=== PATIENT | male | born 1995 | race Caucasian/White ===

== ENCOUNTER → 2022-06-11 08:51 | Outpatient (BNVA) | payer OTHER, SELFPAY | PROVIDERS: Family Provider General Practice; PCP Urology; Visit Provider Registered Nurse | DX: I10 Essential (primary) hypertension (principal); Z82.49 Family history of ischemic heart disease and other diseases of the circulatory system | CPT/HCPCS: 80053; 80061; 85025 ==

== ENCOUNTER → 2023-04-15 08:05 | Outpatient (BNVA) | payer OTHER, SELFPAY | PROVIDERS: Family Provider General Practice; PCP Urology; Referring Provider Registered Nurse; Visit Provider Physician Assistant | DX: S42.002A Fracture of unspecified part of left clavicle, initial encounter for closed fracture; W01.0XXA Fall on same level from slipping, tripping and stumbling without subsequent striking against object, initial encounter | CPT/HCPCS: 73000 ==

== ENCOUNTER 2023-04-19 09:41 | Day surgery (SDC) | payer OTHER, SELFPAY ==
[2023-04-16 13:08] VITALS: BMI 29.2
[2023-04-19] VITALS (16 sets, daily range): BP systolic 95–156; BP diastolic 58–105; PULSE 77–111; RESP 8–24; TEMP 36.1–36.5; O2SAT 95–99; BMI 29.2
[2023-04-19] MEDS: sodium chloride 0.9% 1,000 ML 30 ML IV (10:23)
[2023-04-19] MEDS: ketorolac 30 mg/mL INJ IVP (10:23)
[2023-04-19] MEDS: acetaminophen 1,000 MG/100 ML PIGGYBACK 400 MG IV (10:24)
--- NOTE | 2023-04-19 11:43 | W.PM.OPSUD ---
Surgery/Procedure H&P Update DATE OF PROCEDURE: April 19, 2023 DATE H&P PERFORMED: 04/15/23 H&P UPDATE INFORMATION: I have reviewed H&P completed within last 30 days, I have examined patient prior to procedure and No changes to prior documentation CHANGES TO PREVIOUS DOCUMENTATION: Patient understands the ins and outs of procedure the risk benefits complication alternatives of surgery. Risk of surgery include not limited to make it better make it worse, nonunion, hardware failure/prominence with further surgery, injury to nerves vessels or tendons, infection. Understanding risk of surgery elects to proceed. All questions answered at this time. PREOP DIAGNOSIS: Left Clavicle Fracture PRIMARY INDICATION FOR PROCEDURE: Left clavicle fracture PLANNED PROCEDURE: Operation Date: 04/19/23 11:40 Proposed Procedures p ORIF Clavicle(Left) - Pedro Luis Corona DO
[2023-04-19] MEDS: ceFAZolin 2,000 MG in sodium chloride 0.9% (plus) 50 ML 100 MG IV (12:12)
--- NOTE | 2023-04-19 12:26 | ANES.PREANE2 ---
Pre-Anesthetic Assessment Height/Weight: Height 1.8 m Weight 95.254 kg Temp BP Pulse Ox O2 Del Method 97.7 F 156/105 97 Room Air 04/19/23 09:53 04/19/23 09:53 04/19/23 09:53 04/19/23 09:53 Preop Diagnosis: Left Clavicle Fracture Operation Date: 04/19/23 11:40 Proposed Procedures p ORIF Clavicle(Left) - Pedro Luis Corona DO Familial anesthetic complications: none Was Beta Mirza taken within 24 hours: N/A Was Clonidine taken within 24 hours: N/A Last intake: Intake Last Liquid Date 04/18/23 Last Liquid Time 22:00 Last Solid Date 04/18/23 Last Solid Time 20:30 Social Alcohol (daily) and Tobacco Exam alert, oriented x 3 and regular rate & rhythm Airway Submandibular: within normal limits Cervical ROM: within normal limits Mallampati: Class II Dentition: chipped Pulmonary Chronic Obstructive Pulmonary Disease CV/HEM Hypertension Anesthetic Plan ASA status: 2 Anesthesia: General Medications/Allergies Home Medications Medication Instructions Recorded Confirmed Last Taken Type No Known Home Medications 04/15/23 04/16/23 Unknown History Allergies Allergy/AdvReac Type Severity Reaction Status Date / Time No Known Allergies Allergy Verified 04/16/23 13:07 Current Medications Generic Name Dose Route Start Last Admin Trade Name Domq PRN Reason Stop Dose Admin Sodium Chloride 1,000 mls @ 30 mls/hr 04/19/23 10:00 04/19/23 10:23 Sodium Chloride 0.9% IV 04/20/23 09:59 30 mls/hr .Q24H YOLANDE Administration PFSH Anesthesia Medical History Family history of heart disease in male family member before age 55 Family History Father Hypertension Mother Healthy adult Social History Smoking and tobacco status: current some day smoker Alcohol intake: current Alcohol intake frequency: few times a month Substance/Drug Use: never Marital status: Marital status details: 5 YEARS Number of children: 1 Current occupational status: employed 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
[2023-04-19] MEDS: ROPivacaine 0.5% SDV 30 mL 50 MG INJECTION (14:25)
[2023-04-19] MEDS: lidocaine 1% INJ 10 mL (per mL) INJECTION (14:25)
--- NOTE | 2023-04-19 14:36 | P.BOP_ITS ---
Date of Procedure: [April 19, 2023] Surgeon: [Dr. Chloe CAZARES] Artificial Cherry Maker(s): [Braulio Corona physician faculty i on call medical assistant] Procedure(s) performed: [Left clavicle ORIF] Findings of the procedure(s): [Left clavicle fracture] Estimated blood loss: [25 ml] Specimen(s) removed: [N/A] Post-operative diagnosis: [Left clavicle fracture]
--- NOTE | 2023-04-19 14:36 | W.PM.BPON ---
Date of Procedure: [April 19, 2023] Surgeon: [Dr. Chloe CAZARES] Manager Branch(s): [Braulio Corona physician medical assistant secretary] Procedure(s) performed: [Left clavicle ORIF] Findings of the procedure(s): [Left clavicle fracture] Estimated blood loss: [25 ml] Specimen(s) removed: [N/A] Post-operative diagnosis: [Left clavicle fracture]
--- NOTE | 2023-04-19 14:37 | XRR_ITS ---
PROCEDURE INFORMATION: Exam: XR Left Clavicle, Complete Exam date and time: 04/19/2023 2:45 PM Age: 27 years old Clinical indication: Device placement; Other: Orif L clavicle; Prior surgery; Surgery date: Post-operative (0-2 days) TECHNIQUE: Imaging protocol: Radiologic exam of the left clavicle. Complete exam. Views: Any number of views. COMPARISON: [place] [id number] 04/15/2023 8:06 AM FINDINGS: Bones/joints: The previously seen comminuted displaced fracture of the left clavicle as been internally fixated with a plate anchored with multiple screws. There is excellent apposition and alignment of the fracture fragments. No acute or adverse findings. Soft tissues: Normal. XR/[place] [id number] IMPRESSION: Excellent ORIF of previously noted left clavicular fracture.
--- NOTE | 2023-04-19 14:39 | P.OP_ITS ---
Operative Report Date of procedure: April 19, 2023 Surgeon: Pedro Luis Corona DO Procedure: Pre-op diagnosis: Left midshaft clavicle fracture Surgeon: Pedro Luis Corona DO Post-op diagnosis: Same (left midshaft clavicle fracture) Procedure done: Left midshaft clavicle fracture open reduction internal fixation Implants: Rubi anatomic superior midshaft clavicle plate 10 hole Combination of locking and nonlocking 3.5 millimeter screws 3 cc of crushed cancellous with DBM Rubi was placed at fracture site Surgeon: Pedro Luis Corona DO Rubber Goods Inspector JERALD Crawford was necessary for assistance in this case for protection of neurovascular structures as well as soft tissue retraction assistance and holding reduction for final fixation as well as assistance with wound closure. Estimated blood loss: 25mL IV fluids: 800 mL Urine output: None Complications: None Findings: See operative report narrative Condition: stable Disposition: same day Brief History: Patient presents today as a 27-year-old male who sustained an injury to his left clavicle midshaft. Patient's fracture significantly displaced comminuted with Z-type deformity. We talked about treatment options at this point in time through shared decision making he elects proceed with surgical intervention of the left midshaft clavicle open reduction internal fixation. Patient understands the risk benefits complication alternatives of surgery and elects to proceed with surgical intervention all questions answered. Procedure: Patient presented the preoperative holding area.? Consent was reviewed and signed with patient.? Operative extremity was then marked.? Patient was then seen evaluated by the anesthesia department once cleared for surgery was brought back to the operative suite he is placed in supine position on a regular OR table.? Patient then subsequently underwent anesthesia per the anesthesia department once appropriately anesthetized patient was appropriately positioned in supine position all bony prominences well-padded patient was prepped secured to the bed.? Once in appropriate position with a bump underneath the medial border of the scapula to help with reduction and positioning we then brought in large C arm to confirm appropriate imaging was able to be seen.? Once confirmed appropriate x-ray imaging the left upper extremity/clavicle was then prepped and draped in standard orthopedic fashion.? Final timeout performed.? Patient received appropriate preoperative antibiotics. Standard curvilinear incision was made following the clavicle fracture this was starting at the mid shaft all the way over to the AC joint.? Sharp scalpel excision was made through skin only.? I then utilized electrocautery to maintain exact hemostasis.? I utilized Littler dissection scissors and appropriate supraclavicular nerves were then protected throughout the case.? I then utilized electrocautery to then elevate periosteal flaps around the? clavicle at the fracture site.? Then I utilized a blunt wood handle elevator to mobilize the periosteum medially and laterally from the site of the midshaft clavicle fracture, To the midshaft which had appropriate positioning for my plate as well as laterally all the way to the AC joint to make sure I maximize the position of the plate.? Patient's fracture site was then identified and it was significantly superiorly displaced and interposed in the muscle belly.? I also identified patient had a 2 small butterfly fragments that were too small to lag with concern for splintering as result plan was to cerclage these with the plate with suture tape. I subsequently proceeded with the bridge plating technique. I then utilized a [place] as well as a curette and disengaged this fracture fragment and utilizing [id number] clamps repositioned this to an anatomic reduction along the superior cortex to obtain my appropriate read and appropriate position.? I then brought in? C arm and this was confirmed to be a satisfactory reduction this would be amendable with the midshaft clavicle plate with Rubi.? ? Next I then selected a 10-hole plate placed this in appropriate position utilizing fluoroscopic imaging and utilized [id number]-sp-tus clamps to clamp this in appropriate position while I started bridge plating. Once I was satisfied that this appropriately positioning reducing my fracture fragment maintaining the reduction I then subsequently drilled a nonlocking screw just medial to the fracture to secure the plate to bone.? I utilized baby Homans underneath the collarbone to protect while drilling.? Next I utilized a drill bit and subsequently drilled bicortically measured and placed a bicortical nonlocking screw to compress the plate to bone laterally.? At this point in time I was satisfied with my plate position as well as maintenance of reduction.? I then placed 2 more additional cortical screws on both sides to help increase the plate to bone interface and compress the plate to bone. Once I was satisfied with this and subsequently drilled measured and placed additional locking screws throughout the construct to complete an increased construct rigidity and fixation.? ?This completed my construct fixation final x-rays were taken which showed satisfactory reduction of the clavicle fracture.? The small butterfly fragments were left in place and I utilized Arthrex suture tape x2 to cerclage this and tied this over top the plate just to hold these in appropriate position I then used 3 cc of crushed cancellous DBM bone putty by [employer] into the fracture site to help encourage healing.? Wound bed was then thoroughly irrigated.? I then closed the periosteum with 0 Vicryl suture the subcutaneous layer was closed with 2-0 Vicryl suture and I closed the skin with a running Monocryl, Steri- Strips .? Patient was then placed in OpSite dressing.? Patient was then placed in a sling was awakened from anesthesia and taken to PACU in stable condition. Disposition: Patient taken to PACU in stable condition, recovering well.? Patient will receive appropriate discharge instructions as well as pain medication postoperatively.? We will follow-up with me in the office in 2 weeks.? Strict nonweightbearing to the operative extremity.
--- NOTE | 2023-04-19 14:41 | PM.PACU ---
PACU note Narrative: Patient is a 27-year-old male that just underwent a left ORIF. Patient's dressing is clean dry and intact. His left arm is in shoulder sling. He is still somnolent from anesthesia. Fingers are warm and well-perfused and normal cap refill under 2 seconds. Unable to perform any further exam or assessment due to residual anesthesia. Disposition: discharged
[2023-04-19] MEDS: HYDROcodone-acetaminophen 5-325 mg Tablet 1 TAB PO (15:45)
--- NOTE | 2023-04-19 16:00 | ANE.PACU2 ---
Inpatient post-anesthesia follow up: Airway intact: Yes Vital signs: Temperature 97.0 F Pulse Rate 107 Respiratory Rate 16 Blood Pressure 130/79 Pulse Oximetry 95 Oxygen Delivery Me thod Room Air Oxygen Flow Rate 6 Fraction of Inspir ed Oxygen Hydration adequate: Yes Nausea and vomiting: No Pain level: 3 Mental status: Baseline
== END 2023-04-19 16:15 | disposition home or self-care (01) ==
PROVIDERS: PCP Registered Nurse; Visit Provider Student in an Organized Health Care Education/Training Program
PROC: (CPT 23515; principal; 2023-04-19 11:30)
DX: S42.022A Displaced fracture of shaft of left clavicle, initial encounter for closed fracture (principal); W01.0XXA Fall on same level from slipping, tripping and stumbling without subsequent striking against object, initial encounter; J44.9 Chronic obstructive pulmonary disease, unspecified; I10 Essential (primary) hypertension; F17.200 Nicotine dependence, unspecified, uncomplicated
CPT/HCPCS: 23515; 73000; 76000; C1713; J0131; J0690; J1100; J1170; J1200; J1885; J2250; J2405; J2704; J2795; J3010; J7030

== ENCOUNTER → 2023-05-03 08:34 | Outpatient (BNVA) | payer OTHER, SELFPAY | PROVIDERS: PCP Registered Nurse; Visit Provider Physician Assistant | DX: Z98.890 Other specified postprocedural states; S42.002D Fracture of unspecified part of left clavicle, subsequent encounter for fracture with routine healing; X58.XXXD Exposure to other specified factors, subsequent encounter | CPT/HCPCS: 73000 ==